=== PATIENT | male | born 1985 | race African-American/Black ===

== ENCOUNTER 2017-11-09 14:33 | Emergency (ER) | payer MEDICAID | END 2017-11-09 16:11 | disposition home or self-care (01) | LOC: D.ER 14:33 | DX: S46.911A Strain of unspecified muscle, fascia and tendon at shoulder and upper arm level, right arm, initial encounter (principal); V43.62XA Car passenger injured in collision with other type car in traffic accident, initial encounter; Y93.89 Activity, other specified; Y92.410 Unspecified street and highway as the place of occurrence of the external cause; M54.2 Cervicalgia ==

== ENCOUNTER 2018-07-15 16:05 | Emergency (ER) | payer MEDICAID ==
[~2018-07-15] VITALS: Ht 177.8 cm; Wt 92.7 kg
[2018-07-15 16:30] VITALS: Ht 177.8 cm; Wt 92.7 kg
[2018-07-15 17:27] LABS: BASOPHILS 0.2 % (0-2); EOSINOPHILS 1.1 % (0-7); HEMATOCRIT 45.3 % (42.0-54.0); HEMOGLOBIN 15.1 g/dL (13.5-17.5); IMMATURE GRANULOCYTES 0.2 % (0-5); LYMPHOCYTES 23.5 % (15-50); MCH 27.4 pg (26.0-34.0); MCHC 33.3 g/dL (31.0-37.0); MCV 82.1 fL (80.0-100.0); MEAN PLATELET VOLUME 10.1 fL (7.4-10.4); MONOCYTES 5.2 % (2-11); NEUTROPHILS 69.8 % (40-80); PLATELET COUNT 197 10x3/uL (130-400); RBC 5.52 10x6/uL (4.20-6.10); WBC 6.5 10x3/uL (4.8-10.8)
[2018-07-15 17:43] LABS: ALBUMIN 3.7 g/dL (3.4-5.0); ALKALINE PHOSPHATASE 91 U/L (46-116); ALT (SGPT) 67 U/L (10-68); BILIRUBIN - TOTAL 0.56 mg/dL (0.2-1.3); CALC OSMOLALITY 271 mosm/kg (275-300); CALCIUM 9.7 mg/dL (8.5-10.1); CARBON DIOXIDE 26.4 mmol/L (21.0-32.0); CHLORIDE - SERUM 100 mmol/L (98-107); CREATININE - SERUM 0.7 mg/dL (0.6-1.3); GLUCOSE 89 mg/dL (74-106); POTASSIUM - SERUM 3.8 mmol/L (3.5-5.1); PROTEIN - SERUM 8.4 g/dL (6.4-8.2); SODIUM 137 mmol/L (136-145); UREA NITROGEN 9 mg/dL (7-18); eGFR NON AFRICAN AMERICAN > 90 mL/min (90-120)
[2018-07-15 19:59] LABS: APPEARANCE CLEAR (CLEAR); BILIRUBIN NEGATIVE (NEGATIVE); COLOR YELLOW (YELLOW); GLUCOSE NEGATIVE (NEGATIVE); KETONE NEGATIVE (NEGATIVE); NITRITE NEGATIVE (NEGATIVE); PROTEIN NEGATIVE (NEGATIVE); UROBILINOGEN NORMAL (NORMAL)
[2018-07-15 20:03] LABS: C-REACTIVE PROTEIN 4.4 mg/dL (0.0-0.9); CKMB 0.4 U/L (0.0-3.6); CREATINE KINASE 192 UL (21-232); MAGNESIUM - SERUM 1.8 mg/dL (1.8-2.4); THYROID STIMULATING HORMONE 0.62 uIU/mL (0.36-3.74)
[2018-07-15 20:04] LABS: TROPONIN-I < 0.017 ng/mL (0.000-0.060)
[2018-07-15] MEDS ORDERED: STERAPRED DS 1010 MG PO (21:03)
[2018-07-15 21:13] LABS: ERYTHROCYTE SEDIMENTATION RATE 20 mm/hr (0-15)
[2018-07-15 21:53] VITALS: BP 128/88
== END 2018-07-15 21:54 | disposition home or self-care (01) ==
LOC: D.ER 16:05
PROVIDERS: Family Medicine
DX: R53.83 Other fatigue (principal); D89.89 Other specified disorders involving the immune mechanism, not elsewhere classified

== ENCOUNTER 2019-05-16 21:06 | Emergency (ER) | payer MEDICAID ==
[~2019-05-16] VITALS: Ht 177.8 cm; Wt 95.5 kg
[~2019-05-16 21:06] MED LIST: STERAPRED DS 1010 MG PO
[2019-05-16 21:10] VITALS: Ht 177.8 cm; Wt 95.5 kg
[2019-05-16] MEDS ORDERED: UNK CHOLESTEROL (21:13)
[2019-05-16 21:39] LABS: BASOPHILS 0.3 % (0-2); EOSINOPHILS 1.3 % (0-7); HEMATOCRIT 42.3 % (42.0-54.0); HEMOGLOBIN 13.7 g/dL (13.5-17.5); IMMATURE GRANULOCYTES 0.2 % (0-5); LYMPHOCYTES 28.9 % (15-50); MCH 26.9 pg (26.0-34.0); MCHC 32.4 g/dL (31.0-37.0); MCV 83.1 fL (80.0-100.0); MONOCYTES 6.9 % (2-11); NEUTROPHILS 62.4 % (40-80); PLATELET COUNT 202 10x3/uL (130-400); RBC 5.09 10x6/uL (4.20-6.10); WBC 6.4 10x3/uL (4.8-10.8)
[2019-05-16 21:48] LABS: INR 0.96 (0.85-1.17); PROTIME 12.3 SECONDS (11.6-15.0)
[2019-05-16 22:14] LABS: CALC OSMOLALITY 266 mosm/kg (275-300); CALCIUM 9.4 mg/dL (8.5-10.1); CARBON DIOXIDE 25.6 mmol/L (21.0-32.0); CHLORIDE - SERUM 100 mmol/L (98-107); CREATININE - SERUM 0.9 mg/dL (0.6-1.3); GLUCOSE 102 mg/dL (74-106); SODIUM 134 mmol/L (136-145); UREA NITROGEN 10 mg/dL (7-18); eGFR NON AFRICAN AMERICAN > 90 mL/min (90-120)
[2019-05-16 22:21] LABS: ALBUMIN 3.9 g/dL (3.4-5.0); ALKALINE PHOSPHATASE 101 U/L (46-116); ALT (SGPT) 141 U/L (10-68); AMYLASE - SERUM 71 U/L (25-115); BILIRUBIN - TOTAL 0.35 mg/dL (0.2-1.3); LIPASE 317 U/L (73-393)
[2019-05-16] MEDS ORDERED: TORADOL10 MG PO (22:39)
[2019-05-17 00:30] VITALS: BP 135/88
== END 2019-05-17 00:31 | disposition home or self-care (01) ==
LOC: D.ER 21:06
PROVIDERS: Family Medicine
DX: S46.812A Strain of other muscles, fascia and tendons at shoulder and upper arm level, left arm, initial encounter (principal); S46.811A Strain of other muscles, fascia and tendons at shoulder and upper arm level, right arm, initial encounter; V49.49XA Driver injured in collision with other motor vehicles in traffic accident, initial encounter; G47.30 Sleep apnea, unspecified